=== PATIENT | male | born 1950 | race American Indian/Alaskan Native ===

== ENCOUNTER 2018-11-10 06:05 | Day surgery (SDC) | payer OTHER ==
[2018-11-10] MEDS ORDERED: NACL 0.9% 1000 ML 1,000 ML IV SCH (07:00)
[2018-11-10] MEDS ORDERED: XYLOCAINE 2% INFILTRATI ONE (07:38)
[2018-11-10] MEDS ORDERED: DIPRIVAN 10 MG/ML IV ONE (07:38)
[2018-11-10] MEDS ORDERED: VERSED ONE (07:38)
--- NOTE | 2018-11-10 08:06 | Short Stay Summary ---
Short Stay Documentation - Allergies and Medications Current Medications: Allergies latex Allergy (Mild, Verified 11/09/18 14:08) Unknown Home Medications Medication Instructions Recorded Confirmed Last Taken Type ALBUTEROL Inhaler (OR & NICU) 2 puff INHALATION PRN PRN 11/09/18 11/09/18 Unknown History Acetaminophen 500 mg PO PRN PRN 11/09/18 11/10/18 11/09/18 History Aspirin BABY CHEW TAB 81 mg PO DAILY 11/09/18 11/10/18 11/06/18 History Carvedilol 1 tab PO DAILY 11/09/18 11/10/18 11/09/18 History Cholecalciferol (Vitamin D3) 1 tab PO DAILY 11/09/18 11/10/18 11/09/18 History Cyclobenzaprine 1 tab PO DAILY 11/09/18 11/10/18 11/09/18 History Ferrous Sulfate 325 mg PO DAILY 11/09/18 11/10/18 11/09/18 History Isosorbide Mononitrate 1 tab PO DAILY 11/09/18 11/10/18 11/09/18 History Lisinopril 1 tab PO DAILY 11/09/18 11/10/18 11/10/18 History Active Medications Sodium Chloride (Nacl 0.9% 1000 Ml) 1,000 mls @ 50 mls/hr IV DIRECT HERMILO Last Admin: 11/10/18 07:30 Dose: 50 mls/hr Documented by: - Brief post op/procedure progress note Date of procedure: 11/10/18 Pre-op diagnosis: Colon cancer screening Post-op diagnosis: same (1. Colon polyps 2. Internal hemorrhoids 3. Diverticulosis) Procedure: Colonoscopy with snare polypectomy and with cold biopsy polypectomy Anesthesia: MAC Findings: as above Surgeon: PINKY NICOLE Estimated blood loss: none Pathology: list (1. Sigmoid colon polyp 2. Rectal polyps) Specimen disposition: to lab Condition: stable - Disposition Condition at discharge: Stable Disposition: DC-01 TO HOME OR SELFCARE Short Stay Discharge Plan Activity: no restrictions Weight Bearing Status: Full Weight Bearing Diet: regular Follow up with: [facility] [Primary Care Provider] - 7 Days
[2018-11-10 09:19] VITALS: BP 122/66
--- NOTE | 2018-11-10 10:08 | Anesthesia Day of Surgery ---
Anesthesia Day of Surgery - Day of Surgery Patient Examined: Yes Patient H&P Reviewed: Yes Patient is NPO: Yes Beta Blockers: No
--- NOTE | 2018-11-10 10:09 | Anesthesia Consultation ---
Anesthesia Consult and Med Hx Date of service: 11/10/18 - Airway Anesthetic Teeth Evaluation: Good ROM Head & Neck: Adequate Mental/Hyoid Distance: Adequate Mallampati Class: Class III Intubation Access Assessment: Good - Pulmonary Exam CTA: Yes - Cardiac Exam Cardiac Exam: No Murmur - Pre-Operative Health Status ASA Pre-Surgery Classification: ASA3 Proposed Anesthetic Plan: MAC - Pulmonary Hx Asthma: Yes Hx Sleep Apnea: Yes - Cardiovascular System Hx Hypertension: Yes - Central Nervous System CVA: Yes
== END 2018-11-10 06:06 | disposition home or self-care (01) ==
LOC: GIO 06:05
PROVIDERS: ATTEND Internal Medicine Gastroenterology
DX: Z12.11 Encounter for screening for malignant neoplasm of colon (principal); D12.5 Benign neoplasm of sigmoid colon; K62.1 Rectal polyp; K64.8 Other hemorrhoids; K57.30 Diverticulosis of large intestine without perforation or abscess without bleeding; F17.210 Nicotine dependence, cigarettes, uncomplicated; E78.00 Pure hypercholesterolemia, unspecified; I10 Essential (primary) hypertension; K21.9 Gastro-esophageal reflux disease without esophagitis; Z79.899 Other long term (current) drug therapy; Z98.41 Cataract extraction status, right eye; Z98.42 Cataract extraction status, left eye; Z98.890 Other specified postprocedural states
CPT/HCPCS: 45380; 45385; 82962; 88305; J2250; J2704; J7030